=== PATIENT | female | born 1990 | race Caucasian/White ===

== ENCOUNTER 2018-01-24 13:28 | Emergency (ER) | payer OTHER ==
[~2018-01-24] VITALS: Ht 152.4 cm; Wt 57.6 kg
[~2018-01-24 13:28] MED LIST: ZANTAC300 MG PO; ZOFRAN4 MG PO
== END 2018-01-24 19:42 | disposition home or self-care (01) ==
LOC: ER 13:28
DX: R20.0 Anesthesia of skin (principal); R42 Dizziness and giddiness

== ENCOUNTER → 2018-08-10 | Emergency (ER) | payer OTHER ==
[~2018-08-10] VITALS: Ht 152.4 cm; Wt 59.0 kg
== END | disposition left against medical advice (07) ==
LOC: ER 16:12
DX: Z53.20 Procedure and treatment not carried out because of patient's decision for unspecified reasons (principal)

== ENCOUNTER 2025-04-23 07:45 | Emergency (ER) | payer OTHER ==
[~2025-04-23] VITALS: Ht 152.4 cm; Wt 73.5 kg
[2025-04-23 07:50] VITALS: BP 108/60; O2SAT 100
[2025-04-23] MEDS ORDERED: KETOROLAC TROMETHAMINE 30 MG VIAL IV ONE (08:45)
[2025-04-23] MEDS ORDERED: 0.9 % SODIUM CHLORIDE 1,000 ML IV ONE (08:45)
[2025-04-23] MEDS ORDERED: FAMOtidine 10 MG/ML (4ML VIAL) IV ONE (08:45)
[2025-04-23] MEDS ORDERED: TAMSULOSIN HCL 0.4 MG CAP PO ONE (08:45)
[2025-04-23] MEDS ORDERED: CEFTRIAXONE SODIUM 1,000 MG VIAL IV ONE (08:45)
[2025-04-23 09:16] LABS: BASO % 0.5 % (0.1-1.2); EOS # 0.17 (0.04-0.54); EOS % 2.3 % (0.7-7.0); LYMPH # 0.93 (1.18-3.74); LYMPH % 12.7 % (19.3-53.1); MEAN PLATELET VOLUME 10.30 fl (9.4-12.4); MONO # 0.45 (0.24-0.82); MONO % 6.2 % (4.7-12.5); NEUT # 5.71 (1.56-6.13); NEUT % 78.2 % (34.0-71.1); RED CELL DISTRIBUTION WIDTH 13.1 % (11.6-14.4)
[2025-04-23 09:37] LABS: INR 1.08
[2025-04-23 09:37] LABS: URINE APPEARANCE Cloudy; URINE BILIRRUBIN Negative (NEGATIVE); URINE BLOOD Trace; URINE COLOR Yellow; URINE GLUCOSE Negative (NEGATIVE); URINE KETONE Negative (NEGATIVE); URINE LEUKOCYTE Trace; URINE NITRATE Positive; URINE PROTEIN Negative (NEGATIVE); URINE UROBILINOGEN 0.2 E.U./dl
[2025-04-23 09:38] LABS: URINE EPITHELIAL CELLS 75.0 uL (0.0-38.8); URINE RBC 12.7 uL (0.0-20.8); URINE WBC 55.5 uL (0.0-23.2)
[2025-04-23 09:48] LABS: ALT/SGPT 33 U/L (12-78); AST/SGOT 19 U/L (15-37); BILIRUBIN TOTAL 0.25 mg/dL (0.3-1.2); BUN CREA RATIO 16 (7.0-25.0); CREATININE SERUM 0.80 mg/dL (0.55-1.02); GFR 82.11; GLOBULINA 3.8 G/DL (2.4-3.5); GLUCOSE FASTING 107 mg/dL (65-100); HCG QUANTITATIVE < 1 mUI/mL (1-3); OSMOLALITY SERUM 286 MOSM/KG (275-295)
[2025-04-23 09:54] LABS: URINE BACTERIA > 9821.5 uL (0.0-1933); URINE CAST 0.14 uL (0.0-1.40)
[2025-04-23] MEDS ORDERED: PEPCID AC20 MG PO (11:07)
[2025-04-23] MEDS ORDERED: TAMS0.4C PO (11:07)
[2025-04-23] MEDS ORDERED: BACTRIM DS TAB1 EACH PO (11:07)
[2025-04-23] MEDS ORDERED: NORFLEX100MG PO (11:07)
== END 2025-04-23 11:23 | disposition home or self-care (01) ==
LOC: ER 07:45
PROVIDERS: General Practice
DX: R10.31 Right lower quadrant pain (principal); N20.2 Calculus of kidney with calculus of ureter; N83.201 Unspecified ovarian cyst, right side; Z91.038 Other insect allergy status; Z91.013 Allergy to seafood; Z91.018 Allergy to other foods
CPT/HCPCS: 36415; 74176; 96365; 96366; 99283; J0696; J1885; J3490

== ENCOUNTER 2025-05-30 07:53 | Emergency (ER) | payer OTHER ==
[~2025-05-30] VITALS: Ht 152.4 cm; Wt 72.6 kg
[~2025-05-30 07:53] MED LIST changes: +BACTRIM DS TAB1 EACH PO; +NORFLEX100MG PO; +PEPCID AC20 MG PO; +TAMS0.4C PO
[2025-05-30] MEDS ORDERED: KETOROLAC TROMETHAMINE 30 MG VIAL IM STA (08:22)
[2025-05-30] MEDS ORDERED: ORPHENADRINE CITRATE 30 MG/ML AMPUL IM STA (08:22)
[2025-05-30] MEDS ORDERED: DEXAMETHASONE SODIUM PHOSPHATE 4 MG/ML VIAL IM STA (08:22)
[2025-05-30] MEDS ORDERED: DICLOFENAC POTA50 MG PO (11:29)
[2025-05-30] MEDS ORDERED: ZANAFLEX4 M1 PO (11:29)
== END 2025-05-30 12:17 | disposition home or self-care (01) ==
LOC: ER 07:53
DX: M26.621 Arthralgia of right temporomandibular joint (principal); Z91.018 Allergy to other foods; Z91.013 Allergy to seafood